=== PATIENT | female | born 1970 | race Caucasian/White ===

== ENCOUNTER → 2017-11-23 14:55 | Outpatient (CLI) | payer OTHER, SELFPAY ==
--- NOTE | 2017-11-23 14:56 | DI.RAD.S_ITS ---
PROCEDURE: XR FOOT RT MIN 3V INDICATIONS: right foot and ankle pain after fall TECHNIQUE: 3 views of the foot were acquired. COMPARISON: [facility], , FOOT 3V LEFT, 01/05/2017, 9:33. FINDINGS: Bones: No fractures or dislocations. No suspicious bony lesions. Soft tissues: No tibiotalar joint effusion. Achilles tendon appears normal. IMPRESSION: No acute radiographic findings. If pain persists, followup imaging in 5-7 days is recommended to exclude occult fracture. Dictated by: Chloe Gamez M.D. on 11/23/2017 at 15:50 Approved by: Chloe Gamez M.D. on 11/23/2017 at 15:50
--- NOTE | 2017-11-23 14:56 | DI.RAD.S_ITS ---
PROCEDURE: XR ANKLE RT MIN 3V INDICATIONS: right foot and ankle pain after fall TECHNIQUE: 3 views of the ankle were acquired. COMPARISON: None. FINDINGS: Bones: No fractures or dislocations. Ankle mortise is normally aligned. No suspicious bony lesions. Soft tissues: No tibiotalar joint effusion. Achilles tendon appears normal. IMPRESSION: No acute radiographic findings. If pain persists, followup imaging in 5-7 days is recommended to exclude occult fracture. Dictated by: Chloe Gamez M.D. on 11/23/2017 at 15:14 Approved by: Chloe Gamez M.D. on 11/23/2017 at 15:15
== END ==
PROVIDERS: Family Provider Family Medicine; PCP Family Medicine; Visit Provider Family Medicine
DX: M25.571 Pain in right ankle and joints of right foot (principal)
CPT/HCPCS: 73610; 73630

== ENCOUNTER → 2018-12-17 08:29 | Outpatient (CLI) | payer OTHER, SELFPAY ==
[2018-12-17 10:35] LABS: Hemoglobin A1C% w Est Avg Glu 5.2 % (4.0-6.0)
== END ==
PROVIDERS: PCP Family Medicine; Visit Provider Family Medicine
DX: R35.8 Other polyuria (principal); R63.1 Polydipsia
CPT/HCPCS: 36415; 83036